=== PATIENT | female | born 1980 | race Caucasian/White ===

== ENCOUNTER 2020-11-17 19:52 | Emergency (ER) | payer OTHER, SELFPAY | END 2020-11-17 21:40 | disposition left against medical advice (07) | PROVIDERS: Emergency Provider Emergency Medicine | DX: R10.9 Unspecified abdominal pain (principal) ==

== ENCOUNTER 2023-06-23 17:38 | Emergency (ER) | payer OTHER, SELFPAY ==
--- NOTE | 2023-06-23 | ECG_ITS ---
Test Reason : CHEST PAIN Blood Pressure : / mmHG Vent. Rate : 094 BPM Atrial Rate : 094 BPM P-R Int : 182 ms QRS Dur : 102 ms QT Int : 398 ms P-R-T Axes : 033 006 021 degrees QTc Int : 497 ms Normal sinus rhythm Intra-ventricular conduction delay Cannot rule out Anterior infarct , age undetermined Abnormal ECG No previous ECGs available Referred By: Generic ED Physician Electronically Signed By:FAHEEM HOROWITZ MD
--- NOTE | ~2023-06-23 | XR_ITS ---
EXAMINATION: XR CHEST CLINICAL INFORMATION: Pain. COMPARISON: None available. TECHNIQUE: Frontal view of the chest was obtained. FINDINGS: No significant abnormality is noted involving the heart, lungs, mediastinum, bony thorax or soft tissues. XR/XR chest 1V IMPRESSION: Unremarkable examination.
[2023-06-23 18:06] VITALS: BP 126/90; PULSE 90; O2SAT 94
[2023-06-23 18:20] VITALS: BP 120/92; PULSE 102; RESP 16; TEMP 36.7; O2SAT 96; BMI 31.7
[2023-06-23] MEDS: LORazepam 2 MG/ML VIAL 1 MG IVPUSH (19:19)
[2023-06-23] MEDS: Magnesium Sulfate/H2O 2 GM/50 ML PIGGYBACK IV (19:20)
[2023-06-23] MEDS: ondansetron HCL 4 MG/2 ML VIAL IVPUSH (19:20)
[2023-06-23] MEDS: 0.9 % Sodium Chloride 1,000 ML 999 ML IVCONT (19:22)
--- NOTE | 2023-06-23 19:37 | PC.NURSE ---
pt medicated per MAR
--- NOTE | 2023-06-23 19:38 | ED.CHESTPAIN ---
HPI - Chest Pain General Chief Complaint: Chest Pain Stated Complaint: CHEST PAIN W/ SOB Time Seen by Provider: 06/23/23 18:31 Source: patient and family Mode of arrival: EMS Limitations: no limitations History of Present Illness HPI narrative: 42 yo female with PMH of anxiety, ETOH abuse here with c/o having chest pain and using a vape today - she has had chest pain before with anxiety. She drinks to help her anxiety. She has a cough that is bothering her as well. She is a heavy smoker does not use cocaine. This is not the first time this has happened. She does not take anxiety meds. MD complaint: chest pain Pertinent past history: other (anxiety with chest pain) Onset (ago): hour(s) (5pm) Timing of current episode: episodic Prior episodes: Yes Onset: other (with ETOH) Pain location: substernal Pain radiation: none Severity: moderate Quality: tightness Relieving factors: nothing Exacerbating factors: other (coughing) Context: other (hx of anxiety) Associated symptoms: dyspnea and cough Treatment prior to arrival: none Related Data Allergies Allergy/AdvReac Type Severity Reaction Status Date / Time Unable to Assess Allergy Verified 06/23/23 18:49 Review of Systems Review of Systems: Constitutional : No Weight loss, No Fever, No Chills ENT/Mouth : No sore throat, No Rhinorrhea Eyes: No Eye Pain, No Swelling Cardiovascular : pos Chest Pain, pos SOB, no Dyspnea on Exertion, No Orthopnea, No Edema, No Palpitations Respiratory : pos Cough, No Sputum Gastrointestinal : no Nausea, No Vomiting, No Diarrhea, No abdominal Pain, No Hematochezia, No Melena Genitourinary : No Dysuria, No Urinary Frequency Musculoskeletal : No joint pain, No Myalgias, No Joint Swelling Skin : No Skin Lesions, No rash Neuro : No Weakness, No Numbness, No Dizziness, No Headache Psych : pos Anxiety/Panic, No Depression Heme/Lymph: No Bruising, No Lymphadenopathy Endocrine : No Polyuria, No Polydipsia All other systems reviewed and are negative [facility] Past Medical History Attestation statement: The following information was validated with the patient. Source: obtained from family Medical History Alcohol abuse Anxiety Social History Social History (Updated 06/23/23 @ 19:44 by Yanique Fernandez DO) Alcohol intake: current Patient Tobacco Use Status: Current everyday Tobacco user Smoked in Last 30 Days: Yes Use of substances other than those prescribed or required for medical reasons: No Advance Directives: No Advance Directives Information Provided: Yes Patient : No Physical Exam Vital Signs: Vital Signs: Last Vital Signs Temp 98.3 F 06/23/23 20:47 Pulse 102 H 06/23/23 20:47 Resp 21 H 06/23/23 20:47 BP 106/60 06/23/23 20:47 Pulse Ox 93 06/23/23 20:47 O2 Del Method Room Air 06/23/23 20:47 BMI result Body Mass Index 31.7 Appearance: Alert. Oriented X3. No acute distress. anxiety Eyes: Pupils equal, round and reactive to light. ENT: Pharynx normal. Neck: Normal inspection. Neck supple. CVS: Normal heart rate and rhythm. Pulses normal. Respiratory: No respiratory distress. Breath sounds mildly diminished with dry cough Abdomen: Soft and nontender. Skin: Skin warm and dry. Normal skin color. Normal skin turgor. Extremities: No lower extremity edema. No calf ttp Neuro: Oriented X 3. No motor deficit. No sensory deficit. Course Course Course Narrative: has sober adult ride home she is stable for DC, repeat trop flat Medications Administered Discontinued Medications Generic Name Dose Route Start Last Admin Trade Name Priscila PRN Reason Stop Dose Admin Albuterol Sulfate 2 puff 06/23/23 18:49 06/23/23 20:03 Albuterol Sulfate 90 Mcg 8 Gm Inhaler INHALE 06/23/23 18:50 2 puff ONCE ONE Administration Sodium Chloride 1,000 mls @ 999 mls/hr 06/23/23 19:00 06/23/23 20:32 Ns IVCONT 06/23/23 20:00 Infused .Q1H1M MEKHI Infusion Magnesium Sulfate 2 gm in 50 mls @ 25 mls/hr 06/23/23 18:49 06/23/23 21:31 Magnesium Sulfate/H2o IV 06/23/23 20:48 Infused ONCE ONE Infusion Thiamine HCl 200 mg/ Sodium 102 mls @ 204 mls/hr 06/23/23 18:49 06/23/23 21:06 Chloride IV 06/23/23 19:18 Infused ONCE ONE Infusion Lorazepam 1 mg 06/23/23 18:49 06/23/23 19:19 Lorazepam 2 Mg/Ml Vial IVPUSH 06/23/23 18:50 1 mg STAT STA Administration Ondansetron HCl 4 mg 06/23/23 18:49 06/23/23 19:20 Ondansetron Hcl 4 Mg/2 Ml Vial IVPUSH 06/23/23 18:50 4 mg ONCE ONE Administration Medical Decision Making Medical Decision Making [facility] Narrative: 42 yo female with hx of ETOH abuse and anxiety here with dry cough, chest pain and anxiety after ETOH today and vaping - no cocaine abuse at this time will need basic labs, troponin, INH, CXR EKG - atypical for ACS, other than mild tachycardia that I am associating to ETOH use and anxiety no other risk factors or symtpoms consistent with VTE. I have ordered fluids, INH, thiamine, magnesium and IV ativan. Differential Diagnosis Differential Diagnoses: The differential diagnosis associated with the presentation includes ETOH abuse, reactive airway disease, anxiety atypical for ACS no risk factors for PE - has tachycardia but suspect this is due to ETOH abuse Admission/Observation Consideration of admission/observation: Escalation of care including admission/observation considered trop flat, clinically sober, stable for DC feels much better Lab Data [facility] Lab Attestation statement: I reviewed the patient's lab results. 06/23/23 19:37 06/23/23 19:37 Labs: Lab Results 06/23/23 06/23/23 Range/Units 19:37 20:53 WBC 7.8 (4.8-10.8) X10*3/uL RBC 4.77 (4.20-5.50) X10*6/uL Hgb 14.6 (12.0-16.0) g/dl Hct 42.5 (37.0-47.0) % MCV 89.1 (80.0-98.0) fL MCH 30.6 (27.0-33.0) pg MCHC 34.4 (31.0-35.0) g/dl RDW 12.5 (11.0-16.0) % Plt Count 324 (160-400) X10*3/uL MPV 9.2 L (9.4-12.3) fL Immature Gran % (Auto) 0.5 H (0.0-0.4) % Neut % (Auto) 36.2 L (45-73) % Lymph % (Auto) 54.4 H (20-40) % [place] % (Auto) 6.1 (2-11) % Eos % (Auto) 1.8 (0-4) % Baso % (Auto) 1.0 (0-2) % Lymph # (Auto) 4.3 (1.2-4.9) X10*3/uL [place] # (Auto) 0.5 (0.1-1.2) X10*3/uL Eos # (Auto) 0.1 (0.0-0.4) X10*3/uL Baso # (Auto) 0.1 (0.0-0.2) X10*3/uL Abs Immat Gran (auto) 0.04 H (0.00-0.03) X10*3/uL Absolute Neuts (auto) 2.8 (2.0-8.3) x10*3/uL Absolute Nucleated RBC 0.000 (0.0-0.012) X10*3/uL Nucleated RBC % (auto) 0.0 (0.0-0.2) /100WBC Sodium 146 H (135-145) mmol/L Potassium 3.9 (3.3-5.1) mmol/L Chloride 107 (96-108) mmol/L Carbon Dioxide 23 (22-29) mmol/L Anion Gap 20 (12-20) BUN 5 L (9-16) mg/dL Creatinine 0.68 (0.5-1.4) mg/dL Estim Creat Clear Calc 118.7 Estimated GFR > 60 Random Glucose 345 H (60-115) mg/dL Calcium 8.9 (8.4-10.2) mg/dL Magnesium 2.2 (1.6-2.6) mg/dL Total Bilirubin 0.1 (0.0-1.0) mg/dL Direct Bilirubin < 0.2 (0.0-0.5) mg/dL AST 15 (5-31) U/L ALT 17 (0-31) U/L Alkaline Phosphatase 46 (39-117) U/L Troponin I High Sens < 2.7 < 2.7 (<3.5-17.0) ng/L Total Protein 6.4 L (6.5-8.0) g/dL Albumin 3.6 (3.5-5.0) g/dL COVID-19 (SHABNAM) Negative (Negative) COVID-19 Clin Com See Note Independent Interpretation I performed an independent interpretation of an: EKG and Plain X-Ray (normal ) Interpretation: Rate: 94 Rhythm: NSR [place]: normal Normal P waves. Normal BENITO. Normal QRS complex. ST T wave : normal no SHUKRI qTC: normal prior studies: no acute ischemia The study has been interpreted contemporaneously by me. . Radiology Impression Discussion of test interpretation with radiology: I have reviewed the radiologist's reading. Independent Historian Clinical information obtained from an independent historian. History obtained from or confirmed by: Spouse Prescription Management I considered prescription management with: Other Discharge Plan Discharge Clinical Impression: Atypical chest pain, Alcohol abuse Patient Disposition: Home, Self-Care Instructions: Chest Pain (ED), Alcohol Use Disorder (ED) Additional Instructions: labs for heart and chest xray were normal you were given vitamins and fluids. you can use the inhaler 2 puffs every 3 to 4 hours for cough or wheezing. you can follow up with [facility] in [place] for your anxiety please call them.
[2023-06-23 19:47] LABS: MANUAL DIFF FLAG NO
[2023-06-23 19:50] LABS: Basophils Absolute Auto 0.1 X10*3/uL (0.0-0.2); Eosinophils Absolute Auto 0.1 X10*3/uL (0.0-0.4); Eosinophils Percent Auto 1.8 % (0-4); Hematocrit 42.5 % (37.0-47.0); Hemoglobin 14.6 g/dl (12.0-16.0); Imm Gran Abs Auto 0.04 X10*3/uL (0.00-0.03); Imm Gran Pct Auto 0.5 % (0.0-0.4); Lymphocytes Absolute Auto 4.3 X10*3/uL (1.2-4.9); Lymphocytes Percent Auto 54.4 % (20-40); Mean Corpuscular HGB Conc 34.4 g/dl (31.0-35.0); Mean Corpuscular Hemoglobin 30.6 pg (27.0-33.0); Mean Corpuscular Volume 89.1 fL (80.0-98.0); Mean Platelet Volume 9.2 fL (9.4-12.3); Monocytes Absolute Auto 0.5 X10*3/uL (0.1-1.2); Monocytes Percent Auto 6.1 % (2-11); Neutrophils Absolute Auto 2.8 x10*3/uL (2.0-8.3); Neutrophils Percent Auto 36.2 % (45-73); Platelet Count 324 X10*3/uL (160-400); Red Blood Count 4.77 X10*6/uL (4.20-5.50); Red Cell Distribution Width 12.5 % (11.0-16.0); White Blood Count 7.8 X10*3/uL (4.8-10.8)
[2023-06-23 20:01] LABS: Alanine Aminotransferase 17 U/L (0-31); Albumin Level 3.6 g/dL (3.5-5.0); Alkaline Phosphatase 46 U/L (39-117); Anion Gap 20 (12-20); Aspartate Amino Transferase 15 U/L (5-31); Bilirubin Direct < 0.2 mg/dL (0.0-0.5); Bilirubin Total 0.1 mg/dL (0.0-1.0); Blood Urea Nitrogen 5 mg/dL (9-16); Calcium 8.9 mg/dL (8.4-10.2); Carbon Dioxide 23 mmol/L (22-29); Chloride 107 mmol/L (96-108); Creatinine Clr Calc Pharmacy 118.7; Estimated Glomerular Filt Rate > 60; Glucose Random 345 mg/dL (60-115); Magnesium 2.2 mg/dL (1.6-2.6); Potassium 3.9 mmol/L (3.3-5.1); Sodium 146 mmol/L (135-145); Total Protein 6.4 g/dL (6.5-8.0)
[2023-06-23] MEDS: Albuterol Sulfate 90 MCG 8 GM INHALER 2 PUFF INHALE (20:03)
[2023-06-23 20:10] LABS: Troponin-I High Sensitivity < 2.7 ng/L (<3.5-17.0)
[2023-06-23 20:14] LABS: COVID-19 Test Negative (Negative); IDNOW Serial# 08D9AD1C
[2023-06-23] MEDS: Thiamine HCL 200 MG in 0.9 % Sodium Chloride 100 ML 204 MG IV (20:33)
[2023-06-23 20:47] VITALS: BP 106/60; PULSE 102; RESP 21; TEMP 36.8; O2SAT 93
[2023-06-23 21:20] LABS: Troponin-I High Sensitivity < 2.7 ng/L (<3.5-17.0)
--- NOTE | 2023-06-23 22:35 | PC.NURSE ---
pt assessed at d/c, awake, alert x 3, ambulatory gait steady
== END 2023-06-23 22:37 | disposition home or self-care (01) ==
PROVIDERS: Emergency Provider Emergency Medicine
DX: R07.89 Other chest pain (principal); F10.10 Alcohol abuse, uncomplicated; R07.9 Chest pain, unspecified; R05.9 Cough, unspecified; R06.00 Dyspnea, unspecified; R94.31 Abnormal electrocardiogram [ECG] [EKG]; R00.0 Tachycardia, unspecified; Z11.52 Encounter for screening for COVID-19
CPT/HCPCS: 36415; 71045; 80048; 80076; 83735; 84484; 85025; 87635; 93005; 96365; 96366; 96368; 96375; 99285; J2060; J2405; J3411; J3475